=== PATIENT | male | born 1950 | race Caucasian/White ===

== ENCOUNTER 2017-02-09 06:17 | Inpatient (IN) | payer MEDICARE, BC ==
[2017-01-27 15:30] LABS: BASOPHILS 0 %; EOSINOPHILS 1.5 %; EOSINOPHILS ABSOLUTE 0.09 10/3/uL (0.0-0.53); HEMATOCRIT 43.7 % (40.0-51.0); HEMOGLOBIN 15.2 g/dL (13.6-17.8); IMMATURE GRANULOCYTES 0.2 %; IMMATURE GRANULOCYTES ABSOLUTE 0.01 10/3/uL (0.0-0.11); LYMPHOCYTES 37.5 %; MANUAL DIFF NO %; MEAN CORPUS HGB CONC 34.8 g/dL (32.0-36.0); MEAN CORPUSCULAR HEMOGLOB 31.7 pg (26.0-34.0); MEAN PLATELET VOLUME 10.5 fL (9.2-13.0); MONOCYTES ABSOLUTE 0.55 10/3/uL (0.21-1.20); NEUTROPHILS 51.8 %; NEUTROPHILS ABSOLUTE 3.19 10/3/uL (2.02-8.40); PLATELET COUNT 207 10/3/uL (150-400); RBC DISTRIBUTION WIDTH 12.3 % (12.0-16.0); WHITE BLOOD CELLS 6.1 10/3/uL (4.5-10.5)
[2017-01-27 15:37] LABS: PARTIAL THROMBO TIME 36.1 SEC (22.5-37.2); PROTIME (NOT ORD) 13.3 SEC (12.0-14.5)
[2017-01-27 15:58] LABS: BUN (BLOOD UREA NITROGEN) 18 MG/DL (6-23); CALCIUM, SERUM 9.1 MG/DL (8.5-10.4); CHLORIDE, SERUM 105 MMOL/L (96-112); CO2 (CARBON DIOXIDE) 29 MMOL/L (24-34); CREATININE 0.95 MG/DL (0.70-1.30); GFR AFRICAN AMERICAN 96 ML/MIN (>=60); GFR NON AFRICAN AMERICAN 83 ML/MIN (>=60); GLUCOSE, SERUM 124 MG/DL (60-99); POTASSIUM, SERUM 4.5 MMOL/L (3.5-5.3); SGOT(AST) 17 U/L (5-40); SGPT(ALT) 26 U/L (5-65); SODIUM, SERUM 141 MMOL/L (135-148); TOTAL PROTEIN 7.2 G/DL (6.0-8.5)
[2017-01-27 15:59] LABS: A/G RATIO 1.3 (0.7-1.9); ALKALINE PHOSPHATASE 78 U/L (45-117); GLOBULIN 3.2 G/DL (2.5-4.1); TOTAL BILIRUBIN 0.7 MG/DL (0-1.2)
[2017-01-27 16:02] LABS: ASCORBIC ACID (UR NOT ORDER) 40 (NEG); BILIRUBIN, URINE NEGATIVE (NEG); KETONE, URINE NEGATIVE (NEG); LEUKOCYTE ESTERASE(NOT OR NEG (NEG); WBC (NOT ORDERED) (RFLEX) < 1 (0-5)
--- NOTE | ~2017-02-09 | DS ---
Discharge Summary [facility] [address] [place]. [address] NAME: BIBI CROWELL : 48 STATUS : DIS IN PAT#: [id number] AGE: 66 ADM/REG DATE : 02/09/17 MR#: [id number] REPORT SERV DATE: 02/23/17 DICTATED BY: JOSE GANDHI DATE: 02/22/17 REPORT STATUS : Draft TRANSCRIBED BY: JEANNIE DATE: 02/22/17 Data Collection from hospitalization DISCHARGE DIAGNOSES: 1. Bilateral knee arthritis with varus. 2. History of colon cancer. 3. Coronary atherosclerosis. 4. History of paroxysmal atrial tachycardia. 5. Premature ventricular contractions. CONSULTATIONS: None. PROCEDURES PERFORMED: Bilateral total knee arthroplasty, left then right, 02/09/2017. PATHOLOGY: Bone and joint, left knee, total knee - degenerative changes. Bone marrow - fatty without hematopoiesis. Synovial hyperplasia with neovascularization (no crystals). Bone and joint, right knee, total knee - degenerative - changes with osteopenia. Bone marrow - fatty without hematopoiesis. MEDICATIONS: Colace 100 mg twice a day, ferrous sulfate 300 mg with breakfast and supper, Theragran tablets one tablet with breakfast, and Coumadin as instructed. CONDITION AT DISCHARGE: Stable. DISPOSITION: The patient was discharged home with diet and activities as instructed. HOSPITAL COURSE: This is a 66-year-old man who has had bilateral knee pains. He received cortisone injections, which gave him relief for about two months. He said he had increased soreness after prolonged walking. He has significant pain with certain movements. The patient has bilateral knee arthritis with varus. Treatment options were discussed and it was elected to proceed with surgical intervention. He was admitted to the hospital for further evaluation and treatment. Upon admission, he was taken to the operating room where he underwent the above-mentioned procedure. He tolerated this well, and there were no complications. On postop day #1, INR level was 1.1. He had good pain control. He was evaluated by Occupational and Physical Therapy. On postop day #2, he continued to progress. ALFREDO hose remained in place. We encouraged him to mobilize. Discharge planning was performed. On 02/12/2017, he continued to do well. He was in no acute distress. He had no new complaints. Discharge instructions were given. Due to his improved and stable condition, he was discharged home with the above stated instructions. Information collected by: Myra Duckworth I submit the above information as my discharge summary. TG/MODL Discharge Summary [place] [address] [place]. [address] NAME: BIBI CROWELL : 49 STATUS : DIS IN PAT#: [id number] AGE: 66 ADM/REG DATE : 02/09/17 MR#: [id number] REPORT SERV DATE: 02/23/17 DICTATED BY: JOSE GANDHI DATE: 02/22/17 REPORT STATUS : Draft TRANSCRIBED BY: JEANNIE DATE: 02/22/17 Jose Gandhi M.D. / [id number] CC: Pushpa Santiago M.D.
--- NOTE | ~2017-02-09 | OP ---
Record Of Operation [facility] [address] [place]. [address] NAME: BIBI CROWELL : 49 STATUS : ADM IN PAT#: [id number] AGE: 66 ADM/REG DATE : 02/09/17 MR#: [id number] REPORT SERV DATE: 02/09/17 DICTATED BY: JOSE GANDHI DATE: 02/09/17 REPORT STATUS : Draft TRANSCRIBED BY: MODL DATE: 02/09/17 DATE OF PROCEDURE: 02/09/2017 PREOPERATIVE DIAGNOSIS: Bilateral knee arthritis with varus. POSTOPERATIVE DIAGNOSIS: Bilateral knee arthritis with varus. PROCEDURE PERFORMED: Bilateral total knee arthroplasty, left then right. SURGEON: Jose Gandhi M.D. GLASS FURNACE OPERATOR: Nelson Jim and Julia Perez. ANESTHESIA: General with adductor blocks and local infusions. PROCEDURE IN DETAIL: The patient is clearly identified and after obtaining informed consent is brought to the operating room at [facility] where anesthesia is induced uneventfully with excellent anesthetic effect. This concluded, with right knee being more symptomatic, we approached the right knee first. After Esmarch exsanguination was performed, the affected extremity is prepped and draped in the usual manner and after an appropriate time-out procedure is performed, via an anterior approach, the skin is divided, fascial planes are elevated, paramedial approach to the knee is made. The structures themselves are elevated, excised, and debrided where appropriate, whereupon the patella is carefully everted, calipered, and planed and with the size and type being reproduced with the appropriate-size patella, trialing is performed successfully. At this point, the patella is then carefully subluxed laterally, the knee is flexed, osteophytes around the distal femur are removed, followed by the ACL being divided. The femoral canal is entered and vented, at which point with the intramedullary guide being utilized, the distal femoral cut is made. At this point, the tibia is carefully subluxed anteriorly. The surrounding soft tissues to the tibia are protected with Hohmann retractors, at which point the extramedullary guide is utilized to perform the proximal tibial cut and after cleansing these tissues, the spacer block is utilized in extension to confirm excellent extension, stability, and alignment. The guiding pins are then all carefully removed and the knee is then flexed. The femur is sized, whereupon the anterior, posterior, chamfer, and box cuts are made appropriately. The proximal tibia then is assessed. Osteophytes and surrounding soft tissues are removed and debrided where appropriate. Posterior osteophytes are removed as well. The menisci are excised and thus concluding trialing performed successfully. The proximal tibia then is carefully prepared utilizing proper cement technique. The permanent implants have been carefully placed into position uneventfully whereupon copious irrigation is performed, the permanent tibial implants applied and thus concluded. With this concluded, anesthesia cleared for left lower extremity where upon after Esmarch exsanguination is performed, tourniquet is elevated at 350 mmHg. This is successfully tested. The affected extremity is prepped and draped in the usual manner and after an appropriate time-out procedure is performed, via an anterior approach, the skin is divided, fascial planes are elevated, paramedial approach to the knee is made. The structures Record Of [place] [id number] [facility] [place]. [address] NAME: BIBI CROWELL : 48 STATUS : ADM IN PAT#: [id number] AGE: 66 ADM/REG DATE : 02/09/17 MR#: [id number] REPORT SERV DATE: 02/09/17 DICTATED BY: JOSE GANDHI DATE: 02/09/17 REPORT STATUS : Draft TRANSCRIBED BY: JEANNIE DATE: 02/09/17 themselves are elevated, excised, and debrided where appropriate, whereupon the patella is carefully everted, calipered, and planed and with the size and type being reproduced with the appropriate-size patella, trialing is performed successfully. At this point, the patella is then carefully subluxed laterally, the knee is flexed, osteophytes around the distal femur are removed, followed by the ACL being divided. The femoral canal is entered and vented, at which point with the intramedullary guide being utilized, the distal femoral cut is made. At this point, the tibia is carefully subluxed anteriorly. The surrounding soft tissues to the tibia are protected with Hohmann retractors, at which point the extramedullary guide is utilized to perform the proximal tibial cut and after cleansing these tissues, the spacer block is utilized in extension to confirm excellent extension, stability, and alignment. The guiding pins are then all carefully removed and the knee is then flexed. The femur is sized, whereupon the anterior, posterior, chamfer, and box cuts are made appropriately. The proximal tibia then is assessed. Osteophytes and surrounding soft tissues are removed and debrided where appropriate. Posterior osteophytes are removed as well. The menisci are excised and thus concluding trialing performed successfully. The proximal tibia then is carefully prepared utilizing proper cement technique. The permanent implants have been carefully placed into position uneventfully whereupon copious irrigation is performed, the permanent tibial implants applied and thus concluded. At this point, both lower extremities are cleansed and dressed and the patient is allowed to awaken and is transferred to the bed and subsequently to the recovery room in stable condition having tolerated the procedure well. ESTIMATED BLOOD LOSS: 150 mL. FLUIDS: 1000 mL. TOURNIQUET TIME: Left 38 minutes, right 51 minutes. PATHOLOGY: Sent specimen. MICROBIOLOGY: None. COMPLICATIONS: None. COUNTS: Sponge and needle count was reportedly correct. Antibiotics were administered appropriately preoperatively and ordered to be discontinued within 23 hours. IMPLANTS: Attune knee by [employer]; left, femur 8, tibia 8, patella 41, polyethylene 8/6; right, femur 9, tibia 8, patella 41, polyethylene 9/6. NANCI/JEANNIE Jose Gandhi M.D. Record Of Operation [address] [address] NAME: BIBI CROWELL : 48 STATUS : ADM IN PAT#: [id number] AGE: 66 ADM/REG DATE : 02/09/17 MR#: [id number] REPORT SERV DATE: 02/09/17 DICTATED BY: JOSE GANDHI DATE: 02/09/17 REPORT STATUS : Draft TRANSCRIBED BY: JEANNIE DATE: 02/09/17 / [id number] CC: Jose Gandhi M.D.
[~2017-02-09 06:17] MED LIST: MULTIPLE VIT PO; PRILOSEC40 MG PO; PRIN10 PO
[2017-02-10 05:42] LABS: HEMOGLOBIN 11.2 g/dL (13.6-17.8)
[2017-02-10 05:46] LABS: INTERNATIONAL NORMAL RATI 1.1 UNITS (-); PROTIME (NOT ORD) 14.3 SEC (12.0-14.5)
[2017-02-10 05:53] LABS: BUN (BLOOD UREA NITROGEN) 20 MG/DL (6-23); CHLORIDE, SERUM 103 MMOL/L (96-112); CO2 (CARBON DIOXIDE) 26 MMOL/L (24-34); CREATININE 1.07 MG/DL (0.70-1.30); GFR AFRICAN AMERICAN 83 ML/MIN (>=60); GFR NON AFRICAN AMERICAN 71 ML/MIN (>=60); POTASSIUM, SERUM 3.8 MMOL/L (3.5-5.3); SODIUM, SERUM 139 MMOL/L (135-148)
[2017-02-10 05:54] LABS: CALCIUM, SERUM 8.1 MG/DL (8.5-10.4); GLUCOSE, SERUM 193 MG/DL (60-99)
[2017-02-11 05:01] LABS: HEMATOCRIT 30.7 % (40.0-51.0); HEMOGLOBIN 10.6 g/dL (13.6-17.8)
[2017-02-11 05:05] LABS: INTERNATIONAL NORMAL RATI 1.4 UNITS (-)
[2017-02-11 05:11] LABS: PROTIME (NOT ORD) 16.8 SEC (12.0-14.5)
[2017-02-11 17:23] LABS: BASOPHILS 0 %; EOSINOPHILS 0.6 %; EOSINOPHILS ABSOLUTE 0.06 10/3/uL (0.0-0.53); HEMATOCRIT 33.4 % (40.0-51.0); HEMOGLOBIN 11.3 g/dL (13.6-17.8); IMMATURE GRANULOCYTES 0.2 %; IMMATURE GRANULOCYTES ABSOLUTE 0.02 10/3/uL (0.0-0.11); LYMPHOCYTES 22.5 %; LYMPHOCYTES ABSOLUTE 2.28 10/3/uL (0.67-4.30); MEAN CORPUS HGB CONC 33.8 g/dL (32.0-36.0); MEAN CORPUSCULAR HEMOGLOB 30.9 pg (26.0-34.0); MEAN CORPUSCULAR VOLUME 91.3 fL (80-100); MEAN PLATELET VOLUME 10.5 fL (9.2-13.0); MONOCYTES 17.3 %; MONOCYTES ABSOLUTE 1.76 10/3/uL (0.21-1.20); NEUTROPHILS 59.4 %; NEUTROPHILS ABSOLUTE 6.03 10/3/uL (2.02-8.40); PLATELET COUNT 188 10/3/uL (150-400); RBC DISTRIBUTION WIDTH 12.4 % (12.0-16.0)
[2017-02-11 17:24] LABS: MANUAL DIFF NO %; RED CELL COUNT 3.66 10/6/uL (4.7-6.1); WHITE BLOOD CELLS 10.2 10/3/uL (4.5-10.5)
[2017-02-11 17:35] LABS: BUN (BLOOD UREA NITROGEN) 17 MG/DL (6-23); CALCIUM, SERUM 8.5 MG/DL (8.5-10.4); CHLORIDE, SERUM 104 MMOL/L (96-112); CO2 (CARBON DIOXIDE) 28 MMOL/L (24-34); CREATININE 1.04 MG/DL (0.70-1.30); GFR AFRICAN AMERICAN 86 ML/MIN (>=60); GFR NON AFRICAN AMERICAN 74 ML/MIN (>=60); GLUCOSE, SERUM 167 MG/DL (60-99); POTASSIUM, SERUM 4.2 MMOL/L (3.5-5.3); SODIUM, SERUM 140 MMOL/L (135-148)
[2017-02-12 05:02] LABS: INTERNATIONAL NORMAL RATI 1.4 UNITS (-); PROTIME (NOT ORD) 16.8 SEC (12.0-14.5)
[2017-02-12 05:08] LABS: MEAN CORPUSCULAR HEMOGLOB 31.9 pg (26.0-34.0); MEAN CORPUSCULAR VOLUME 91.4 fL (80-100); MEAN PLATELET VOLUME 10.4 fL (9.2-13.0); PLATELET COUNT 155 10/3/uL (150-400); RBC DISTRIBUTION WIDTH 12.4 % (12.0-16.0); RED CELL COUNT 3.13 10/6/uL (4.7-6.1); WHITE BLOOD CELLS 7.4 10/3/uL (4.5-10.5)
[2017-02-12 05:10] LABS: BUN (BLOOD UREA NITROGEN) 17 MG/DL (6-23); CALCIUM, SERUM 8.3 MG/DL (8.5-10.4); CHLORIDE, SERUM 104 MMOL/L (96-112); CO2 (CARBON DIOXIDE) 27 MMOL/L (24-34); CREATININE 0.91 MG/DL (0.70-1.30); GFR AFRICAN AMERICAN 101 ML/MIN (>=60); GFR NON AFRICAN AMERICAN 87 ML/MIN (>=60); GLUCOSE, SERUM 174 MG/DL (60-99); POTASSIUM, SERUM 4.1 MMOL/L (3.5-5.3); SODIUM, SERUM 139 MMOL/L (135-148)
[2017-02-12 05:15] LABS: HEMATOCRIT 28.6 % (40.0-51.0); MANUAL DIFF YES %
[2017-02-12 06:07] LABS: LYMPHOCYTES 20 %; LYMPHOCYTES ABSOLUTE (CALC) 1.48 10/3/uL (0.67-4.30); MONOCYTES 22 %; MONOCYTES ABSOLUTE (CALC) 1.63 10/3/uL (0.21-1.20); NEUTROPHILS ABSOLUTE (CALC) 4.29 10/3/uL (2.02-8.40); SEGMENTED NEUTROPHIL (0) 58 %; TOTAL NUCLEATED CELLS 100
[2017-02-12 06:08] LABS: PLATELET ESTIMATE ADQ (ADEQUATE); RBC MORPHOLOGY NORM (NORMAL)
[2017-02-12] MEDS ORDERED: C5 PO (13:42)
[2017-02-12] MEDS ORDERED: OXYCOD PO (13:53)
[2017-04-30] MEDS ORDERED: LIPITOR20 PO (09:40)
[2017-04-30] MEDS ORDERED: ACET500CAP PO (09:41)
== END 2017-02-12 18:25 | disposition home or self-care (01) | DRG 462 ==
LOC: SDC/OF 06:17 → PACU 12:17 → 3SO 12:51
PROVIDERS: Nurse Practitioner; Orthopaedic Surgery
PROC: 0SRC0J9 Replacement of Right Knee Joint with Synthetic Substitute, Cemented, Open Approach (ICD-10-PCS; 2017-02-09)
PROC: 3E0T3CZ (ICD-10-PCS; 2017-02-09)
PROC: 0SRD0J9 Replacement of Left Knee Joint with Synthetic Substitute, Cemented, Open Approach (ICD-10-PCS; principal; 2017-02-09 07:45)
DX: M17.0 Bilateral primary osteoarthritis of knee (principal); Z28.21 Immunization not carried out because of patient refusal
CPT/HCPCS: 36415; 71020; 80048; 80053; 81001; 85014; 85018; 85025; 85610; 85730; 86850; 86900; 86901; 87641; 88305; 88311; 97110-GP; 97116-GP; 97161-GP; 97166-GO; A9270-GY; C1776; J0690; J1170; J1885; J2250; J2274; J2370; J2405; J2710; J2795; J3010

== ENCOUNTER 2017-05-04 07:12 | Day surgery (SDC) | payer MEDICARE, BC ==
[2017-04-30 13:49] LABS: BASOPHILS 0 %; EOSINOPHILS 3.5 %; IMMATURE GRANULOCYTES 0.2 %; IMMATURE GRANULOCYTES ABSOLUTE 0.01 10/3/uL (0.0-0.11); LYMPHOCYTES 36.4 %; LYMPHOCYTES ABSOLUTE 2.07 10/3/uL (0.67-4.30); MEAN PLATELET VOLUME 10.5 fL (9.2-13.0); MONOCYTES 9.2 %; MONOCYTES ABSOLUTE 0.52 10/3/uL (0.21-1.20); NEUTROPHILS 50.7 %; NEUTROPHILS ABSOLUTE 2.88 10/3/uL (2.02-8.40); WHITE BLOOD CELLS 5.7 10/3/uL (4.5-10.5)
[2017-04-30 13:52] LABS: HEMATOCRIT 40.1 % (40.0-51.0); HEMOGLOBIN 13.3 g/dL (13.6-17.8); MANUAL DIFF NO %; MEAN CORPUS HGB CONC 33.2 g/dL (32.0-36.0); MEAN CORPUSCULAR HEMOGLOB 28.5 pg (26.0-34.0); MEAN CORPUSCULAR VOLUME 86.1 fL (80-100); PLATELET COUNT 210 10/3/uL (150-400); RBC DISTRIBUTION WIDTH 15.6 % (12.0-16.0); RED CELL COUNT 4.66 10/6/uL (4.7-6.1)
[2017-04-30 14:01] LABS: BUN (BLOOD UREA NITROGEN) 19 MG/DL (6-23); CHLORIDE, SERUM 106 MMOL/L (96-112); CO2 (CARBON DIOXIDE) 29 MMOL/L (24-34); CREATININE 0.96 MG/DL (0.70-1.30); GFR AFRICAN AMERICAN 94 ML/MIN (>=60); GFR NON AFRICAN AMERICAN 81 ML/MIN (>=60); POTASSIUM, SERUM 4.2 MMOL/L (3.5-5.3); SODIUM, SERUM 140 MMOL/L (135-148)
[2017-04-30 14:03] LABS: CALCIUM, SERUM 9.5 MG/DL (8.5-10.4); GLUCOSE, SERUM 128 MG/DL (60-99)
--- NOTE | ~2017-05-04 | OP ---
Record Of Operation [facility] [address] [place]. [address] NAME: BIBI CROWELL : 48 STATUS : REG [facility] PAT#: [id number] AGE: 66 ADM/REG DATE : 05/04/17 MR#: [id number] REPORT SERV DATE: 05/04/17 DICTATED BY: JAMES PANG DATE: 05/04/17 REPORT STATUS : Draft TRANSCRIBED BY: MODL DATE: 05/04/17 DATE OF PROCEDURE: 05/04/2017 PREOPERATIVE DIAGNOSIS: Urinary retention with benign prostatic hyperplasia. POSTOPERATIVE DIAGNOSIS: Urinary retention with benign prostatic hyperplasia and suspected bladder tumor. PROCEDURES: 1. Cystoscopy. 2. Bladder biopsy. 3. Fulguration of bladder tumor. 4. GreenLight photo laser vaporization of prostate. SURGEON: James Pang M.D. ANESTHESIA: General. ESTIMATED BLOOD LOSS: Estimated 5 mL. FLUID REPLACEMENT: 1 L of crystalloid. DRAINS: An 18-Turkmen Pang catheter. INDICATIONS: 66-year-old male, who has had urinary retention for approximately two to three months. He has failed multiple voiding trials. He has had a chronic indwelling catheter. FINDINGS: 1. Benign prostatic hypertrophy with obstruction, lateral lobe hypertrophy. 2. Questionable bladder tumor on the posterior wall to the right of midline, appeared isolating that part of just irritation from the chronic indwelling Pang. TECHNIQUE: The patient was identified, and brought to the operating room. Administered general anesthetic agent by the Anesthesia Service and intubated. He was positioned dorsal lithotomy position. The penis, groin, scrotum, and perineum were prepped and draped in the usual sterile fashion. A 22-Turkmen cystoscopic sheath with 30-degree lens was used for cystourethroscopy. The anterior and bulbous urethra were normal. The prostatic urethra was hypertrophied with lateral lobe hypertrophy mostly. The bladder was entered and surveyed. Left and right ureteral orifices appeared normal. There was moderate trabeculation. There was some erythema around the bladder neck, but on the posterior wall to the right of midline was a raised what appeared to be papillary tumor. It measured approximately 1.5 cm. The remainder of the bladder was surveyed or some other areas erythema, but nothing as suspicious. Using the cold cup biopsy forceps, the bladder tumor was biopsied. I then used a Bugbee electrode and cauterized the entire tumor. The biopsy was sent as right posterior wall Record Of Operation [address] [place]. [address] NAME: BIBI CROWELL : 48 STATUS : REG [facility] [place] PAT#: [id number] AGE: 66 ADM/REG DATE : 05/04/17 MR#: [id number] REPORT SERV DATE: 05/04/17 DICTATED BY: JAMES PANG DATE: 05/04/17 REPORT STATUS : Draft TRANSCRIBED BY: JEANNIE DATE: 05/04/17 bladder. I removed the cystoscope and inserted a 24-Turkmen continuous flow laser sheath with an obturator. The obturator was removed and the laser bridge with a 30-degree lens was inserted. A Holmium XPS fiber was inserted, started at 100 lee power. I cut a groove from the bladder neck back to the verumontanum at the 3 o'clock, and 5 o'clock position. I then cut laterally from the verumontanum toward the capsule of the prostate between the 7 o'clock and 11 o'clock position and between the 5 o'clock and 1 o'clock position. I then increased the intensity of the laser fiber to 170 lee. I then ablated the lateral lobe tissue in the floor of the prostate. I turned the power back down to 100 lee power and ablated the anterior. No ablation was done distal to the verumontanum. The bladder was irrigated free of all debris. It remained clear, I removed the laser bridge, and inserted an 18-Turkmen Pang catheter, and put 10 mL of sterile water in the balloon. The bladder was irrigated clear with saline. The catheter was left to drainage. The patient awakened and taken to the recovery unit in a stable satisfactory condition. PF/JEANNIE Jamse Pang M.D. / [id number] CC: Pushpa Cain M.D.
[~2017-05-04 07:12] MED LIST changes: +ACET500CAP PO; +C5 PO; +LIPITOR20 PO; +OXYCOD PO
== END 2017-05-04 16:45 | disposition home or self-care (01) ==
LOC: SDC 07:12
PROVIDERS: Urology
PROC: 0TBB8ZX Excision of Bladder, Via Natural or Artificial Opening Endoscopic, Diagnostic (ICD-10-PCS; 2017-05-04)
PROC: 0V508ZZ Destruction of Prostate, Via Natural or Artificial Opening Endoscopic (ICD-10-PCS; 2017-05-04)
PROC: 0T5B8ZZ Destruction of Bladder, Via Natural or Artificial Opening Endoscopic (ICD-10-PCS; principal; 2017-05-04 09:00)
DX: C67.4 Malignant neoplasm of posterior wall of bladder (principal); N40.1 Benign prostatic hyperplasia with lower urinary tract symptoms; N13.8 Other obstructive and reflux uropathy; R33.8 Other retention of urine; M17.0 Bilateral primary osteoarthritis of knee; Z85.038 Personal history of other malignant neoplasm of large intestine; Z96.653 Presence of artificial knee joint, bilateral; Z90.49 Acquired absence of other specified parts of digestive tract
CPT/HCPCS: 80048; 85025; 88305; 93005; A9270-GY; J1885; J2270; J2405; J2710; J3010